=== PATIENT | male | born 1980 | race Caucasian/White ===

== ENCOUNTER 2018-08-06 07:37 | Emergency (ER) | payer BC ==
[~2018-08-06] VITALS: Ht 167.6 cm; Wt 88.2 kg
[2018-08-06 07:40] VITALS: BP 126/83; PULSE 109; RESP 16; Ht 167.6 cm; Wt 88.2 kg
[2018-08-06] MEDS ORDERED: ACETAMINOPHEN 325 MG TAB PO ONE (10:30)
[2018-08-06] MEDS ORDERED: IBUPROFEN 600 MG TAB PO ONE (10:30)
[2018-08-06] MEDS ORDERED: IBUP-1542 PO (11:02)
[2018-08-06] MEDS ORDERED: D-ME473S2 PO (11:02)
--- NOTE | 2018-08-06 12:23 | ERD ---
ER Documentation Chief Complaint Chief Complaint FEVER X 3DAYS HPI 38-year-old male patient with no significant past medical history presents to ED complaining of fever, dry cough, body aches that started yesterday. Patient reports that his sons are also sick with similar symptoms. Patient reports that he has not taking any medications. Patient reports that he has not taking any medications. Denies any chest pain, shortness of breath, wheezing, abdominal pain, nausea, vomiting, diarrhea, neck stiffness. ROS All systems reviewed and are negative except as per history of present illness. Medications Home Meds Active Scripts Ibuprofen* (Motrin*) 600 Mg Tab, 600 MG PO Q6, #30 TAB Prov:SHREYAS ROSEN PA-C 08/06/18 Dextromethorphan Hb-Promethazine Hcl* (Promethazine DM* Syrup) 473 Ml Syrup, 5 ML PO Q6 PRN for COUGH, #120 ML Prov:SHREYAS ROSEN PA-C 08/06/18 Allergies Allergies: Coded Allergies: No Known Allergy (Unverified , 08/06/18) PMhx/Soc Medical and Surgical Hx: pt denies Medical Hx, pt denies Surgical Hx Anesthesia Reaction: No Hx Neurological Disorder: No Hx Respiratory Disorders: No Hx Cardiac Disorders: No Hx Psychiatric Problems: No Hx Miscellaneous Medical Probl: No Hx Alcohol Use: Yes (socially) Hx Substance Use: No Hx Tobacco Use: No Smoking Status: Never smoker FmHx Family History: No diabetes, No coronary disease Physical Exam Vitals Vital Signs Date Temp Pulse Resp B/P (MAP) Pulse Ox O2 O2 Flow FiO2 Time Delivery Rate 08/06/18 101.0 11:32 08/06/18 101.3 109 16 126/83 99 07:40 (97) Physical Exam Const: [id number], well-nourished. In no acute distress. Head: Atraumatic, normocephalic Eyes: Normal Conjunctiva without injection. No purulent discharge. PERRL. EOMI ENT: Normal external ear. Ear canal without erythema. Tympanic membrane pearly sanchez without effusion or bulging. Nasal canal clear with normal turbinates. Moist oropharynx without tonsillar exudates. Non-erythematous pharynx. Uvula midline. No drooling. No trismus. Neck: Full range of motion. No meningismus. No cervical lymphadenopathy. Resp: Clear to auscultation bilaterally. No wheezing, rhonchi, rales, or crackles. No accessory muscle use. No retractions. Cardio: Regular rate and rhythm. No murmurs, rubs or gallops. Abd: Soft, non tender, non distended. Normal bowel sounds. No palpable masses. No rebound tenderness. No guarding. Skin: No petechiae or rashes Back: No midline tenderness. No CVA tenderness. Ext: No cyanosis, or edema. Neur: Awake and alert. Psych: Normal Mood and Affect Results 24 hrs Current Medications Medications Dose Sig/Ninoska Start Time Status Last (Trade) Ordered Route PRN Stop Time Admin Dose Reason Admin Ibuprofen 600 mg ONCE ONCE 08/06/18 DC 08/06/18 (Motrin) PO 10:30 08/06/18 10:25 10:31 650 mg ONCE ONCE 08/06/18 DC 08/06/18 Acetaminophen PO 10:30 08/06/18 10:24 (Tylenol 10:31 Tab) Procedures/MDM 38-year-old male patient with no significant past medical history presents to ED complaining of fever, dry cough, body aches that started yesterday. Patient is a fever of 101.3. Ibuprofen, Tylenol was ordered to further downtrend patient's temperature. Influenza negative. This patient presents to the ED with symptoms consistent with a viral acute upper respiratory infection. Patient's physical exam include lungs which were clear to auscultation and a normal pulse oximetry. There is a low suspicion for pneumonia, pneumothorax, mononucleosis, pulmonary embolism, epiglottitis, otitis media, otitis externa, viral/strep pharyngitis, sinusitis, myocarditis, pericarditis, endocarditis, peritonsillar abscess, mastoiditis, retropharyngeal abscess, meningitis, sepsis, acute abdomen or other emergent conditions. Fluids, rest, and symptomatic treatment are recommended for the management of patient's symptoms. Diagnosis: Fever, Cough Discharge medications: Promethazine DM, Ibuprofen Follow up with primary care physician in 1-2 days. Instructed patient to return to the ED sooner for any worsening symptoms. Patient's questions were answered. Patient is hemodynamically stable. Patient understood and agreed with discharge plan. Patient discharged stable. Disclaimer: Inadvertent spelling and grammatical errors are likely due to EHR/dictation software use and do not reflect on the overall quality of patient care. Also, please note that the electronic time recorded on this note does not necessarily reflect the actual time of the patient encounter. Departure Diagnosis: Primary Impression: Fever Fever type: unspecified Qualified Codes: R50.9 - Fever, unspecified Additional Impression: Cough Condition: Stable Patient Instructions: Fever Control (Adult), Uri, Viral, No Abx (Adult) [facility] Usted se kendrick hecho un examen mdico de control que le indica que no est en good condicin que requiera tratamiento urgente en el Departamento de Emergencia. Un estudio ms profundo y el tratamiento de babcock condicin pueden esperar sin ningn riesgo hasta que usted sea atendida/o en el consultorio de babcock mdico o good clnica. Es responsabilidad suya arreglar good zev para el seguimiento del miracle. MANEJO DE CONDICIONES NO URGENTES EN EL FUTURO 1) Si usted tiene un mdico de atencin primaria: Usted debera llamar a babcock mdico de atencin primaria antes de venir al departamento de emergencia. Despus de las horas de consultorio, babcock doctor o babcock asociado/a est disponible por telfono. El mdico o enfermero de cl en el servicio telefnico puede asesorarle por cici medio para atender el problema, o miracle contrario se puede programar good zev. 2) Si usted no tiene un mdico de atencin primaria: Llame al mdico o clnica de referencia que aparece abajo seng las horas de consultorio para hacer good zev para que le vean. CLINICAS: [facility] [phone] [address] [facility] [phone] [facility] [phone] [facility] [phone] [facility]. [place] [phone] [facility]. [phone] [facility] () Usnza se kendrick hecho un examen mdico de control que le indica que no est en good condicin que requiera tratamiento urgente en el Departamento de Emergencia. Un estudio ms profundo y el tratamiento de babcock condicin pueden esperar sin ningn riesgo hasta que usted sea atendida/o en el consultorio de babcock mdico o good clnica. Es responsabilidad suya arreglar good zev para el seguimiento del miracle. MANEJO DE CONDICIONES NO URGENTES EN EL FUTURO 1) Si usted tiene un mdico de atencin primaria: Usted debera llamar a babcock mdico de atencin primaria antes de venir al departamento de emergencia. Despus de las horas de consultorio, babcock doctor o babcock asociado/a est disponible por telfono. El mdico o enfermero de cl en el servicio telefnico puede asesorarle por cici medio para atender el problema, o miracle contrario se puede programar good zev. 2) Si usted no tiene un mdico de atencin primaria: Llame al mdico o condado institucions de referencia que aparece abajo seng las horas de consultorio para hacer good zev para que le vean. SI USTED NO PUEDE PAGAR PARA ROCKY UN MEDICO puede ir a: [facility] [address] [place] [address] [facility] [address] [place] [address] [facility] [address] [place] [address] [facility] [address] [place] [address] Additional Instructions: Llame al doctor MAANA y marisol good ZEV PARA DENTRO DE 2-3 VALENCIA.Dgale a la secretaria que nosotros le instruimos hacer esta zev.Avise o llame si babcock condicin se empeora antes de la zev. Regresa aqui si peor o no mejor. SHREYAS ROSEN PA-C Aug 06, 2018 12:23
== END 2018-08-06 11:33 | disposition home or self-care (01) ==
LOC: FTE 07:37
DX: R50.9 Fever, unspecified (principal); R05 Cough
CPT/HCPCS: 87400; Z7610; 99283

== ENCOUNTER 2018-09-05 09:07 | Emergency (ER) | payer OTHER, BC ==
[~2018-09-05] VITALS: Ht 175.3 cm; Wt 87.4 kg
[~2018-09-05 09:07] MED LIST: D-ME473S2 PO; IBUP-1542 PO
[2018-09-05 09:22] VITALS: BP 152/94; PULSE 111; RESP 18; Ht 175.3 cm; Wt 87.4 kg
[2018-09-05] MEDS ORDERED: ONDANSETRON 4 MG INJ IV STA (09:42)
[2018-09-05] MEDS ORDERED: SOD CHLORIDE 0.9% 1,000 ML IV STA (09:42)
[2018-09-05] MEDS ORDERED: LORAZEPAM 2 MG INJ IV ONE (10:00)
[2018-09-05] MEDS ORDERED: ONDA4TAB14 PO (11:18)
[2018-09-05] MEDS ORDERED: ACET500C5 PO (11:19)
--- NOTE | 2018-09-05 13:11 | ERD ---
ER Documentation Chief Complaint Chief Complaint feeling weak and dizzy x 1 day , last drink last night HPI 38-year-old male presenting with week and dizziness times 1 day. Patient had a couple drinks last night. Denies any chest pain or shortness of breath. Denies vomiting. Just feels weak. Denies medical problems. NKDA. Surgical history denies. Social history denies ROS All systems reviewed and are negative except as per history of present illness. Medications Home Meds Active Scripts Acetaminophen* (Tylophen*) 500 Mg Capsule, 2 CAP PO Q8H PRN for PAIN AND OR EL EVATED TEMP, #20 CAP Prov:CUCO SALOMON PA-C 09/05/18 Ondansetron (Ondansetron Odt) 4 Mg Tab.rapdis, 4 MG PO Q6H PRN for NAUSEA AND/OR VOMITING, #10 TAB Prov:CUCO SALOMON PA-C 09/05/18 Ibuprofen* (Motrin*) 600 Mg Tab, 600 MG PO Q6, #30 TAB Prov:SHREYAS ROSEN PA-C 08/06/18 Dextromethorphan Hb-Promethazine Hcl* (Promethazine DM* Syrup) 473 Ml Syrup, 5 ML PO Q6 PRN for COUGH, #120 ML Prov:SHREYAS ROSEN PA-C 08/06/18 Allergies Allergies: Coded Allergies: No Known Allergy (Unverified , 08/06/18) PMhx/Soc Anesthesia Reaction: No Hx Neurological Disorder: No Hx Respiratory Disorders: No Hx Cardiac Disorders: No Hx Psychiatric Problems: No Hx Miscellaneous Medical Probl: No Hx Alcohol Use: Yes (socially) Hx Substance Use: No Hx Tobacco Use: No Smoking Status: Never smoker FmHx Family History: No diabetes, No coronary disease, No other Physical Exam Vitals Vital Signs Date Temp Pulse Resp B/P (MAP) Pulse Ox O2 O2 Flow FiO2 Time Delivery Rate 09/05/18 98.2 111 18 152/94 98 09:22 (113) Physical Exam GENERAL: The patient is well-appearing, well-nourished, in no acute distress HEENT: Atraumatic. Conjunctivae are pink. Pupils equal, round, and reactive to light. There is no scleral icterus. Tympanic membranes clear bilaterally. Oropharynx clear. NECK: C-spine is soft and supple. There is no meningismus. There is no cervical lymphadenopathy. CHEST: Clear to auscultation bilaterally. There are no rales, wheezes or rhonchi. HEART: Regular rate and rhythm. No murmurs, clicks, rubs or gallops. ABDOMEN:Soft, nontender and nondistended. Good bowel sounds. No rebound or guarding. No gross peritonitis. No gross organomegaly or masses. Result Diagram: 09/05/18 1000 09/05/18 1000 Results 24 hrs Laboratory Tests Test 09/05/18 10:00 09/05/18 10:48 White Blood Count 2.3 10^3/ul Red Blood Count 4.85 10^6/ul Hemoglobin 15.4 g/dl Hematocrit 43.6 % Mean Corpuscular Volume 89.9 fl Mean Corpuscular Hemoglobin 31.8 pg Mean Corpuscular Hemoglobin Concent 35.3 g/dl Red Cell Distribution Width 12.0 % Platelet Count 85 10^3/UL Mean Platelet Volume 10.2 fl Immature Granulocytes % 0.000 % Neutrophils % 65.7 % Lymphocytes % 25.7 % Monocytes % 7.8 % Eosinophils % 0.4 % Basophils % 0.4 % Nucleated Red Blood Cells % 0.0 /100WBC Immature Granulocytes # 0.000 10^3/ul Neutrophils # 1.5 10^3/ul Lymphocytes # 0.6 10^3/ul Monocytes # 0.2 10^3/ul Eosinophils # 0.0 10^3/ul Basophils # 0.0 10^3/ul Nucleated Red Blood Cells # 0.0 10^3/ul Sodium Level 139 mmol/L Potassium Level 3.8 mmol/L Chloride Level 99 mmol/L Carbon Dioxide Level 28 mmol/L Anion Gap 12 Blood Urea Nitrogen 4 mg/dl Creatinine 0.65 mg/dl Est Glomerular Filtrat Rate mL/min > 60 mL/min Glucose Level 188 mg/dl Calcium Level 9.3 mg/dl Total Bilirubin 0.6 mg/dl Direct Bilirubin 0.00 mg/dl Indirect Bilirubin 0.6 mg/dl Aspartate Amino Transf (AST/SGOT) 73 IU/L Alanine Aminotransferase (ALT/SGPT) 52 IU/L Alkaline Phosphatase 141 IU/L Total Protein 8.5 g/dl Albumin 4.7 g/dl Globulin 3.80 g/dl Albumin/Globulin Ratio 1.23 Lipase 273 U/L Urine Color YELLOW Urine Clarity CLEAR Urine pH 7 Urine Specific [place] 1.005 Urine Ketones NEGATIVE mg/dL Urine Nitrite NEGATIVE mg/dL Urine Bilirubin NEGATIVE mg/dL Urine Urobilinogen NEGATIVE mg/dL Urine Leukocyte Esterase NEGATIVE Yadira/ul Urine Microscopic RBC 0 /HPF Urine Microscopic WBC 0 /HPF Urine Hemoglobin NEGATIVE mg/dL Urine Glucose NEGATIVE mg/dL Urine Total Protein NEGATIVE mg/dl Current Medications Medications Dose Sig/Ninoska Start Time Status Last (Trade) Ordered Route PRN Stop Time Admin Dose Reason Admin Sodium 1,000 ml @ Q1H STAT 09/05/18 DC 09/05/18 Chloride 1,000 mls/hr IV 09:42 09/05/18 09:58 10:41 Ondansetron 4 mg ONCE STAT 09/05/18 DC 09/05/18 HCl (Zofran IV 09:42 09/05/18 09:59 Inj) 09:43 Lorazepam 0.5 mg ONCE ONCE 09/05/18 DC 09/05/18 (Ativan) IV 10:00 09/05/18 09:59 10:01 Procedures/MDM MDM: 38-year-old male presenting with weakness. Patient's blood work is within normal limits. Patient was given a liter of normal saline ED. I have low suspicion for dehydration. I have low suspicion for acute abdominal emergency. Patient is discharged with stricter precautions and told to follow-up with primary care within 1-2 days for close evaluation. Patient is told if symptoms change or worsen to return immediately to the ER. All questions answered at discharge Departure Diagnosis: Primary Impression: Dizziness Condition: Stable Patient Instructions: Dizziness, Unk Cause Referrals: [facility] YOU HAVE RECEIVED A MEDICAL SCREENING EXAM AND THE RESULTS INDICATE THAT YOU DO NOT HAVE A CONDITION THAT REQUIRES URGENT TREATMENT IN THE EMERGENCY DEPARTMENT. FURTHER EVALUATION AND TREATMENT OF YOUR CONDITION CAN WAIT UNTIL YOU ARE SEEN IN YOUR DOCTORS OFFICE WITHIN THE NEXT 1-2 DAYS. IT IS YOUR RESPONSIBILITY TO MAKE AN APPOINTMENT FOR FOLOW-UP CARE. IF YOU HAVE A PRIMARY DOCTOR --you should call your primary doctor and schedule an appointment IF YOU DO NOT HAVE A PRIMARY DOCTOR YOU CAN CALL OUR PHYSICIAN REFERRAL HOTLINE AT IF YOU CAN NOT AFFORD TO SEE A PHYSICIAN YOU CAN CHOSE FROM THE FOLLOWING [facility] [address] [facility]. [facility] [address] [facility] [address] [facility] [address] [facility] [address] [facility]. [facility] [address] Additional Instructions: FOLLOW UP WITH YOUR PRIMARY CARE PHYSICIAN TOMORROW.Return to this facility if you are not improving as expected. CUCO SALOMON PA-C Sep 05, 2018 13:11
== END 2018-09-05 11:48 | disposition home or self-care (01) ==
LOC: FTE 09:07
DX: R42 Dizziness and giddiness (principal)
CPT/HCPCS: 36415; 80053; 81003; 83690; 85025; 96374; 96375; 99284; J2060; J2405; J7030